=== PATIENT | female | born 1955 | race Caucasian/White ===

== ENCOUNTER → 2017-03-14 | Outpatient (CLI) | payer OTHER ==
[~2017-03-14] MED LIST: ANTIVERT 25MG25 MG PO; ATIVAN 0.50.5 MG/TAB PO; CALCIUM CARBONATE; CIPRO; LORTAB 5/500 501 TAB PO; NAPROSYN375 MG PO; NO HOME MEDICATIONS; NORCO 325 MG-7.1 TAB PO; PRILOSEC10 MG PO; RANITIDINE 7575 MG PO; SKELAXIN400 MG PO; [UNRECOGNIZED DRUG - REMARK]
== END ==
LOC: MC.RAD 10:08
DX: Z12.31 Encounter for screening mammogram for malignant neoplasm of breast (principal); N64.89 Other specified disorders of breast

== ENCOUNTER → 2017-03-18 | Outpatient (CLI) | payer OTHER | LOC: MC.RAD 09:30 | DX: N64.89 Other specified disorders of breast (principal) ==

== ENCOUNTER 2017-09-17 09:05 | Emergency (ER) | payer OTHER, BC ==
[~2017-09-17] VITALS: Ht 160 cm; Wt 115.0 kg
[2017-09-17 09:06] VITALS: TEMP 98.8
[2017-09-17] MEDS ORDERED: PROTONIX20 MG PO (09:09)
[2017-09-17] MEDS ORDERED: HCTZ 25MG TAB25 MG PO (09:09)
[2017-09-17 09:39] LABS: BASO # 0.1 (0.0-0.2); EOS % 0.4 % (0-4.0); GRAN # 6.5 (1.4-6.5); GRAN % 68.9 % (42.2-75.2); HEMATOCRIT 45.2 % (37.0-47.0); HEMOGLOBIN 15.6 g/dl (12.5-16.0); LYMPH % 20.8 % (20.0-51.0); MEAN CELL VOLUME 93 fl (80.0-100.0); MEAN CORPUSCULAR HEMOGLOBIN 32 pg (27.0-31.0); MEAN CORPUSCULAR HGB CONC 35 g/dl (33.0-37.0); MEAN PLATELET VOLUME 10.8 fl (7.4-10.4); MONO # 0.8 (0.1-0.6); MONO % 8.6 % (1.7-9.3); PLATELET COUNT 270 K/mm3 (130-400); RED BLOOD COUNT 4.85 M/mm3 (4.10-5.30); REDCELL DISTRIBUTION WIDTH-CV 12.2 % (11.5-14.5)
[2017-09-17 09:58] LABS: ALANINE AMINOTRANSFERASE 61 U/L (9-52); ALBUMIN 4.5 gm/dL (3.5-5.0); ALKALINE PHOSPHATASE 91 U/L (50-136); ANION GAP 12 mmol/L (7-16); AST,SGOT 40 U/L (15-37); BILIRUBIN,TOTAL 0.6 mg/dL (0.0-1.0); BLOOD UREA NITROGEN 18 mg/dL (7-17); CALCIUM 9.6 mg/dL (8.4-10.2); CARBON DIOXIDE 24 mmol/L (22-30); CHLORIDE 104 mmol/L (98-107); CREATININE, serum 0.86 mg/dL (0.52-1.25); GLUCOSE 119 mg/dL (74-106); POTASSIUM 3.7 mmol/L (3.4-5.0); SODIUM 140 mmol/L (137-145); TOTAL PROTEIN 7.6 gm/dL (6.4-8.2)
[2017-09-17 10:02] LABS: C-REACTIVE PROTEIN < 0.5 mg/dL (0.0-0.9)
[2017-09-17 10:12] LABS: TROPONIN-I < 0.012 ng/mL (0.000-0.034)
[2017-09-17] MEDS ORDERED: ATIVAN 0.50.5 MG/TAB PO (10:24)
[2017-09-17 10:32] VITALS: BP 137/75; PULSE 76
== END 2017-09-17 10:33 | disposition home or self-care (01) ==
LOC: COL.ER 09:05
PROVIDERS: Emergency Medicine
DX: R42 Dizziness and giddiness (principal); I10 Essential (primary) hypertension; K21.9 Gastro-esophageal reflux disease without esophagitis; F17.210 Nicotine dependence, cigarettes, uncomplicated
CPT/HCPCS: J2060; J2405; J7030

== ENCOUNTER → 2019-08-13 | Outpatient (CLI) | payer OTHER ==
[~2019-08-13] MED LIST changes: +HCTZ 25MG TAB25 MG PO; +PROTONIX20 MG PO
== END ==
LOC: MC.RAD 14:33
DX: Z12.31 Encounter for screening mammogram for malignant neoplasm of breast (principal)

== ENCOUNTER 2019-08-15 11:19 | Emergency (ER) | payer OTHER ==
[~2019-08-15] VITALS: Ht 160 cm; Wt 121.8 kg
[2019-08-15 11:25] VITALS: BP 164/88; TEMP 98.4
[2019-08-15] MEDS ORDERED: SYNTHROID0.05 MG/TA PO (13:51)
[2019-08-15] MEDS ORDERED: PRIL40 PO (13:52)
[2019-08-15] MEDS ORDERED: NORVASC 5MG5 MG/TAB PO (13:53)
[2019-08-15] MEDS ORDERED: PREDNISONE20 MG PO ×3 (14:28→14:45)
[2019-08-15] MEDS ORDERED: NORCO 325 MG-51 TAB PO (14:28)
[2019-08-15 14:43] VITALS: PULSE 81
== END 2019-08-15 14:43 | disposition home or self-care (01) ==
LOC: COL.ER 11:19
DX: M79.622 Pain in left upper arm (principal); F17.210 Nicotine dependence, cigarettes, uncomplicated; I10 Essential (primary) hypertension; Z90.89 Acquired absence of other organs; Z90.710 Acquired absence of both cervix and uterus; Z98.890 Other specified postprocedural states

== ENCOUNTER → 2019-09-26 | Outpatient (CLI) | payer OTHER ==
[~2019-09-26] MED LIST changes: +NORCO 325 MG-51 TAB PO; +NORVASC 5MG5 MG/TAB PO; +PREDNISONE20 MG PO; +PRIL40 PO; +SYNTHROID0.05 MG/TA PO
== END ==
LOC: COL.RAD 13:00
DX: M47.22 Other spondylosis with radiculopathy, cervical region (principal)

== ENCOUNTER → 2021-10-20 | Outpatient (CLI) | payer MEDICARE | LOC: MC.RAD 12:45 | DX: Z12.31 Encounter for screening mammogram for malignant neoplasm of breast (principal) ==

== ENCOUNTER 2022-01-22 08:27 | Day surgery (SDC) | payer MEDICARE ==
[~2022-01-22] VITALS: Ht 161.3 cm; Wt 124.1 kg
[2022-01-22 09:27] VITALS: BP 141/87; PULSE 56; TEMP 97.7
[2022-01-22] MEDS ORDERED: PROTONIX 40MG T40 MG PO (09:31)
[2022-01-22] MEDS ORDERED: COZAAR 50MG50 MG/TAB PO (09:32)
[2022-01-22] MEDS ORDERED: NORVASC 10MG10 MG PO (09:33)
[2022-01-22 10:30] VITALS: BP 115/70; PULSE 60; TEMP 97.2
--- NOTE | 2022-01-22 10:30 | NUR ---
PATIENT ARRIVES TO ROOM 1 VIA CART. ASSIST TO CHAIR X 1. VITAL SIGNS WNL. AT BEDSIDE. DENIES ANY NAUSEA OR PAIN. WILL CONTINUE TO MONITOR.
[2022-01-22 10:45] VITALS: BP 132/78; PULSE 60
--- NOTE | 2022-01-22 10:45 | NUR ---
PATIENT IS ALERT AND ORIENTED. SHE TOLERATED HER MUFFIN AND WATER WELL. VITAL SIGNS WNL. AT BEDSIDE. WAITING FOR DOCTOR TO SPEAK WITH PATIENT. WILL CONTINUE TO MONITOR.
[2022-01-22 11:00] VITALS: BP 135/69; PULSE 63
--- NOTE | 2022-01-22 11:00 | NUR ---
PATIENT IS READY FOR DISCHARGE. DOCTOR AT BEDSIDE. VITAL SIGNS WNL. DISCHARGE INSTRUCTIONS REVIEWED. WILL DISCHARGE ONCE HER RIDE ARRIVES TO PICK HER UP.
== END 2022-01-22 11:16 | disposition home or self-care (01) ==
LOC: SDCO 08:27
DX: K21.00 Gastro-esophageal reflux disease with esophagitis, without bleeding (principal); Z87.891 Personal history of nicotine dependence; E66.01 Morbid (severe) obesity due to excess calories; Z68.42 Body mass index [BMI] 45.0-49.9, adult; K44.9 Diaphragmatic hernia without obstruction or gangrene
CPT/HCPCS: J2704; J7120

== ENCOUNTER → 2023-06-01 | Outpatient (CLI) | payer MEDICARE ==
[~2023-06-01] MED LIST changes: +ASPIRIN 81M81 MG/TA2 PO; +COZAAR 50MG50 MG/TAB PO; +K-DUR20 MEQ PO; +NORVASC 10MG10 MG PO; +PROTONIX 40MG T40 MG PO
== END ==
LOC: CANSCHCLI → COL.PUL 11:29
DX: R06.02 Shortness of breath (principal)